=== PATIENT | female | born 1970 | race Caucasian/White ===

== ENCOUNTER → 2017-08-06 17:03 | Outpatient (CLI) | payer SELFPAY ==
[2017-08-20 12:22] LABS: Anti-Thyroglobulin AB < 1.0 IU/mL (0.0-0.9); Thyroglobulin, Serum Qt. 452.1 ng/mL (1.5-38.5); Thyroid Peroxidase AB 23 IU/mL (0-34)
== END ==
PROVIDERS: Family Provider Family Medicine; PCP Family Medicine; Visit Provider Otolaryngology
DX: E05.20 Thyrotoxicosis with toxic multinodular goiter without thyrotoxic crisis or storm (principal)
CPT/HCPCS: 36415; 84432; 86376; 86800

== ENCOUNTER → 2017-08-26 08:54 | Outpatient (CLI) | payer SELFPAY ==
--- NOTE | 2017-08-26 08:57 | US_ITS ---
STUDY: THYROID ULTRASOUND REASON FOR EXAM: Female, 47 years old. Multinodular goiter TECHNIQUE: Ultrasound evaluation of the thyroid was performed with real-time and static pantoja-scale imaging. COMPARISON: None. FINDINGS: RIGHT LOBE: The right lobe of the thyroid gland measures 7.5 x 3.1 x 3 cm. There is a heterogeneous echotexture. There are multiple solid nodules within the right lobe of the thyroid gland, the largest is within the midpole measuring 2.5 x 2.5 x 1.9 cm. LEFT LOBE: The left lobe of the thyroid gland measures 5.9 x 2.5 x 2.2 cm. There is a heterogeneous echotexture. There are multiple solid nodules within the left lobe of the thyroid gland, the largest measuring 1.6 x 1.6 x 1.4 cm. ISTHMUS: The isthmus measures 9 mm. The regional lymph nodes are normal. US/Thyroid IMPRESSION: Enlarged heterogeneous thyroid gland with multiple bilateral nodules most consistent with multinodular goiter. Electronically Signed: Demarco Coe DO at 8:55 EDT Tel , Service support ,
--- NOTE | 2017-08-26 09:33 | NM_ITS ---
CLINICAL: 47-year-old female with reported history of clinical thyrotoxicosis, thyroid nodularity. I-123 THYROID UPTAKE and SCAN COMPARISON: Thyroid ultrasound report 08/26/2017 FINDINGS: The patient was administered a 303 uCi I-123 capsule by mouth. The 4-hour I-123 radioactive iodine thyroidal uptake was calculated to be 40.3 % (normal 5 to 25 %). The 24-hour I-123 radioactive iodine thyroidal uptake was calculated to be 58.7 % (normal 5 to 40 %). The I-123 thyroid scan demonstrates heterogeneous distribution of the radiopharmaceutical throughout both lobes of a U-shaped thyroid gland. NM/Thyroid Uptake Single or Mult IMPRESSION: 1. ABNORMAL ELEVATED 4- and 24-hour I-123 radioactive iodine thyroidal uptakes. 2. The I-123 thyroid scan in conjunction with the calculated iodine uptake values is consistent with the presence of a toxic multinodular goiter. 3. The incidence of malignant transformation in hypofunctioning regions in multinodular thyroid glands is less than 5% in the absence of previous head and neck radiation. Electronically Signed: Gus Archuleta DO at 11:02 EDT Tel , Service support ,
== END ==
PROVIDERS: Family Provider Family Medicine; PCP Family Medicine; Visit Provider Otolaryngology
DX: E05.20 Thyrotoxicosis with toxic multinodular goiter without thyrotoxic crisis or storm (principal)
CPT/HCPCS: 76536; 78012; A9516

== ENCOUNTER → 2017-10-10 10:35 | Outpatient (CLI) | payer SELFPAY ==
[2017-10-10 13:36] LABS: Free T3 9.1 pg/mL (2.18-3.98); T4 Free Direct 3.56 ng/dL (0.76-1.46); Thyroid Stim Hormone (TSH) < 0.01 uIU/mL (0.358-3.74)
== END ==
PROVIDERS: Family Provider Family Medicine; PCP Family Medicine; Visit Provider Nurse Practitioner
DX: E07.9 Disorder of thyroid, unspecified (principal)
CPT/HCPCS: 36415; 84439; 84443; 84481

== ENCOUNTER → 2019-03-17 14:06 | Outpatient (CLI) | payer BC, SELFPAY ==
[2019-03-17 13:35] VITALS: BMI 42.4
--- NOTE | 2019-03-17 14:08 | EKG12_ITS ---
Test Reason : Blood Pressure : / mmHG Vent. Rate : 146 BPM Atrial Rate : 141 BPM P-R Int : 000 ms QRS Dur : 088 ms QT Int : 262 ms P-R-T Axes : 000 023 015 degrees QTc Int : 408 ms Atrial fibrillation with rapid ventricular response Abnormal ECG Confirmed by ALFREDO MCCABE, FRANTZ ([id number]), acquisitions editor JAHAIRA CANADA ([id number]) on 03/18/2019 1:16:17 PM Referred By: Donny Estraad Confirmed By:GILBERTO FUENTES MD
== END ==
PROVIDERS: Family Provider Family Medicine; PCP Family Medicine; Referring Provider Internal Medicine Endocrinology, Diabetes & Metabolism; Visit Provider Internal Medicine Endocrinology, Diabetes & Metabolism
DX: I49.9 Cardiac arrhythmia, unspecified (principal)
CPT/HCPCS: 93005

== ENCOUNTER 2019-03-17 14:33 | Inpatient (IN) | payer BC, SELFPAY ==
[2019-03-17] VITALS (19 sets, daily range): BP systolic 102–179; BP diastolic 72–132; PULSE 88–163; RESP 16–28; TEMP 36.4–36.9; O2SAT 97–99; BMI 42.4; BMI 42.9; BMI 42.8
--- NOTE | 2019-03-17 15:00 | RAD_ITS ---
STUDY: X-RAY CHEST REASON FOR EXAM: Female, 48 years old. PALPITATIONS TECHNIQUE: PA and lateral views of the chest. COMPARISON: None. FINDINGS: The lungs are clear and expanded. Scattered calcified granulomas. There is no demonstrated pleural abnormality. There is borderline cardiomegaly. Normal mediastinum and halie. Normal visualized pulmonary arteries. There is atherosclerotic tortuosity of the aortic arch and descending thoracic aorta. Normal visualized thoracic spine. Normal visualized ribs, clavicles, and shoulders. There is no demonstrated abnormality of the visualized soft tissue structures of the upper abdomen. RAD/Chest PA and Lateral IMPRESSION: Borderline cardiomegaly. Electronically Signed: [place], at 15:44 EST , Service support ,
[2019-03-17] MEDS: 0.9% Normal Saline 1,000 ML 999 ML IV (15:11)
[2019-03-17] MEDS: Metoprolol Tartrate 5 MG/5 ML Vial IV ×3 (15:12→15:24)
[2019-03-17 15:17] LABS: Absolute Lymphocyte Count 3.17 X10^3/uL (0.83-4.51); Basophil# 0.04 X10^3/uL; Basophil% 0.5 % (0-1); Eosinophil# 0.17 X10^3/uL; Eosinophils% 2.1 % (0-5); Hematocrit 46.2 % (37-47); Hemoglobin 15.1 g/dL (12.0-15.0); Lymphocyte # 3.17 X10^3/ul (4.0); Lymphocyte % 39.7 % (19-41); Mean Corp Hgb Conc 32.7 g/dL (32-36); Mean Corpuscular Hgb 28.1 pg (27.0-32.0); Mean Platelet Vol. 9.4 fl (6.2-12.0); Monocyte# 0.63 X10^3/uL; Monocyte% 7.9 % (0-10); NRBC Flagged by Analyzer 0 % (0-5); Neutrophil # 3.95 X10^3/uL (2.7-7.7); Neutrophil % 49.5 % (47-70); Platelet Count 335 K/mm3 (150-450); RBC Distribution Width CV 13.4 % (11.6-14.6); RBC Distribution Width SD 41.6 fl (35.1-43.9); Red Blood Count 5.37 M/mm3 (4.2-5.4)
--- NOTE | 2019-03-17 15:50 | ED.DCSUM_ITS ---
History of Present Illness Chief Complaint: Palpitations Informant: Patient Onset: - - Unknown Narrative: Patient is a 48-year-old female with history of hypothyroid, hypertension and palpitations presenting with abnormal EKG. Patient was due to have her thyroid checked and she had an EKG performed which showed atrial fibrillation with RVR. Her heart rate was between 140 and 160. She was then sent to the emergency room. Patient states she is on atenolol because she has a history of tachycardia. She denies any known history of atrial fibrillation. She states they been trying to get her thyroid under control because it is high. She denies any shortness of breath but states she does intermittently have dyspnea on exertion. She states it is been going on for little while. She is not sure for how long. She notes she is feeling palpitations right now. She states she been feeling palpitations on and off for the past 10 years however. She denies any chest pain or difficulty breathing. She denies any swelling of her legs. She denies any abdominal pain. She denies any urinary symptoms. She denies any fever or chills. Prior similar symptoms: Yes Past Medical History - Allergies and Home Meds Allergies/Adverse Reactions: Allergies No Known Allergies Allergy (Verified 03/17/19 14:36) Past Medical History: - - History of hyperthyroid, hypertension and fast heartbeat, polycystic ovarian syndrome Surgical History: noncontributory Smoking Status: Current every day smoker - Family History Maternal Family History: Family History (Last Reviewed 03/17/19 @ 17:21 by Bay Oliver DO) Other Adult idiopathic generalized osteoporosis Asthma Heart disease Kidney disease Seizures Family History: Reports: Heart Disease, Renal Disease Paternal Family History: Family History (Last Reviewed 03/17/19 @ 17:21 by Bay Oliver DO) Other Adult idiopathic generalized osteoporosis Asthma Heart disease Kidney disease Seizures Family History: Reports: COPD Review of Systems General: Reports: Malaise. Denies: Chills, Fever, Sweats Eyes: Denies: Visual changes - bilaterally, Diplopia ENT: Denies: Rhinorrhea, Sore throat Cardiovascular: Reports: Palpitations, Heart racing. Denies: Chest pain Respiratory: Reports: Dyspnea, Dyspnea on exertion. Denies: Cough Gastrointestinal: Denies: Abdominal pain, Nausea, Vomiting, Diarrhea, Melena, Hematochezia Genitourinary: Denies: Dysuria, Hematuria, Frequency Musculoskeletal: Denies: Back pain, Extremity Pain Skin: Denies: Rash, Wounds Neurological: Denies: Headache, Weakness, Numbness Physical Exam Vital Signs/Narrative: Vital Signs Temp Pulse Resp BP Pulse Ox 03/17/19 15:23 111 H 155/93 H 03/17/19 15:18 123 H 21 H 158/82 H 98 03/17/19 15:05 141 H 139/103 H 03/17/19 14:46 163 H 19 H 179/132 H 98 03/17/19 14:34 97.5 F L 98 18 178/108 H 98 Inital Vital Signs reviewed: Yes General: Well nourished, Well developed, Obese, No Acute Distress Head: Normocephalic, Atraumatic Eyes: Perrl, EOMI ENT: Moist mucous membranes, No rhinorrhea Neck: Supple, Nontender, No JVD Cardiovascular: No murmurs, Irregular, Tachycardia. Negative for: Murmur Respiratory: No distress, CTA bilaterally, Chest nontender Abdomen: Soft, Nontender, Nondistended, Normal bowel sounds Back: Nontender, Normal Inspection Extremities: Nontender, No edema. Negative for: Calf Tenderness Skin: Normal color, No rash Neurological: Alert, Oriented x3, Cranial nerves II-XII grossly intact, Normal Strength, Normal Sensation Psychological: Normal affect, Normal Mood Diagnostic/Tx/Re-eval Chest X-Ray - ED: 1 View, Read by ED Physician, Read by Radiologist, No Acute Disease Clinical Impression(s) from Imaging Studies Chest X-Ray 03/17/19 15:00 IMPRESSION: Borderline cardiomegaly. Electronically Signed: [place], at 15:44 EST , Service support , Laboratory Data 03/17/19 03/17/19 03/17/19 15:05 15:05 15:05 WBC 8.0 RBC 5.37 Hgb 15.1 H Hct 46.2 MCV 86.0 MCH 28.1 MCHC 32.7 RDW Std Deviation 41.6 RDW Coeff of Gaye 13.4 Plt Count 335 MPV 9.4 Immature Gran % (Auto) 0.300 Neut % (Auto) 49.5 Lymph % (Auto) 39.7 [place] % (Auto) 7.9 Eos % (Auto) 2.1 Baso % (Auto) 0.5 Absolute Neuts (auto) 4.0 Absolute Lymphs (auto) 3.17 Nucleated RBC % 0 Sodium 139 Potassium 3.7 Chloride 106 Carbon Dioxide 27.0 Anion Gap 6 BUN 14 Creatinine 0.63 Estim Creat Clear Calc 87.31 Est GFR (MDRD) Af Amer 129 Est GFR (MDRD) Non-Af 107 BUN/Creatinine Ratio 22.2 H Glucose 111 H Calcium 9.8 Troponin I 1.520 H* B-Natriuretic Peptide 232.1 H TSH < 0.01 L Free T3 pg/dL 7.1 H - Rhythm Strip Rhythm Strip: A-fib Rate: 146 Ectopy: None - EKG Initial EKG Interpretation: Atrial Fibrillation, - - Atrial fibrillation with RVR at a rate of 146 EKG was brought in by patient and ordered by Dr. Estrada Normal ST segments - Medical Decision Making Patient is evaluated for new onset of atrial fibrillation with RVR. She appears nontoxic in no acute distress. She is actually hypertensive. Patient was currently under evaluation for hyperthyroid by endocrinology. She was supposed to be getting blood work done to evaluate this when she was found to have a fast heart rate and then sent to the emergency room. Patient is given 3 doses of 5 mg IV metoprolol with improvement of her rate. Her troponin and proBNP are mildly elevated. Likely this is strain from her A. fib. Is not clear how long she has been in RVR. Patient makes comments that she is been feeling unwell for about a month. Because of the abnormal proBNP and troponin patient be admitted for further management of her atrial fibrillation. I suspect it is secondary to her hyperthyroid. I did discuss with admitting physician, the possibility of her being early thyroid storm. As patient is nontoxic appearing with normal mental status and normal reflexes do not think she needs to be emergently started on methimazole. 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 He will start this on the floor. In addition he will determine anticoagulation need. Patient is given a dose of aspirin in the emergency room. Patient stable for PCU at time of disposition. She is agreeable with plan. ED Disposition - Plan for ED Patient: Disposition: Acute Care Hospital [facility] Diagnosis: Atrial fibrillation with RVR, Hyperthyroidism, Elevated troponin
[2019-03-17 15:54] LABS: BNP,B-Type NATRIURETIC PEPTIDE 232.1 pg/mL (0-100)
[2019-03-17 15:56] LABS: Anion Gap 6 (5-15); BUN 14 mg/dL (7-18); BUN/Creat Ratio 22.2 RATIO (10-20); Calcium,Total 9.8 mg/dL (8.5-10.1); Chloride 106 mmol/L (98-107); Creatinine, Serum 0.63 mg/dL (0.55-1.02); EST Glomerular Filtration Rate 107 mL/min (>60); Est Glom Filt Rate - Afr Amer 129 mL/min (>60); Estimated Creatinine Clearance 87.31 ml/min; Free T3 7.1 pg/mL (2.18-3.98); Glucose 111 mg/dL (74-106); Potassium 3.7 mmol/L (3.5-5.1); Sodium Level 139 mmol/L (136-145); Thyroid Stim Hormone (TSH) < 0.01 uIU/mL (0.358-3.74)
[2019-03-17] MEDS: Aspirin 325 MG Tablet PO (16:40)
--- NOTE | 2019-03-17 16:54 | PCM.HP.STD ---
<Jak Knox - Last Filed: 03/17/19 16:54> Problem List (1) Atrial fibrillation with RVR Status: Acute (2) Hyperthyroidism Status: Acute (3) Morbid obesity Status: Chronic (4) GERD (gastroesophageal reflux disease) Status: Chronic (5) HTN (hypertension) Status: Chronic (6) Osteoarthritis Status: Chronic (7) Nicotine abuse Status: Chronic History of Present Illness Date of Admission: 03/17/19 Chief Complaint: irregular heart rhythm The patient is a 48 year old F with pmhx of hyperthyroidism, HTN, nicotine abuse, unspecified irregular heart rhythm, morbid obesity, osteoarthritis, GERD who presents to the ER from Dr. Estrada (endocrinology office) for arrhythmia. She went for a routine check up concerning her hyperthyroidism. She is not currently on medication for this. She was found to have Afib RVR with rate into the 160s. She was started on cardizem and has had some improvement. She reports no hx of afib but intermittent hx of nonspecific abnormal heart beat. She has elevated T3/T4 and suppressed TSH. Trop is elevated. She denies palpitations. She denies CP/pressure/tightness/heaviness. She has no SOB. She has noticed over the past month some heart racing with exertion. She also reports ongoing cough with intermittent sputum production and that her nieces and nephews are sick. [] Past Medical History Past Medical History (Chronic Problems): Chronic Problems (Last Reviewed 03/17/19 @ 14:07 by Donny Estrada MD) Morbid obesity (Chronic) GERD (gastroesophageal reflux disease) (Chronic) HTN (hypertension) (Chronic) Osteoarthritis (Chronic) Nicotine abuse (Chronic) Medical History: Medical History (Last Reviewed 03/17/19 @ 14:07 by Donny Estrada MD) Acute eczema L30.9 Allergic rhinitis, unspecified J30.9 Asthma J45.909 Chronic sinusitis J32.9 De Quervain's tenosynovitis M65.4 Encounter for therapeutic drug level monitoring Z51.81 Enlarged thyroid E04.9 Generalized osteoarthrosis, involving multiple sites M15.9 Hyperlipidemia E78.5 Internal hemorrhoids K64.8 Polycystic ovaries E28.2 Hypertension I10 Abdominal pain, right upper quadrant R10.11 Allergies No Known Allergies Allergy (Verified 03/17/19 14:36) Home Medications: Ambulatory Orders Medication Instructions Recorded DiphenhydrAMINE [Benadryl] 25 mg PO QHS PRN PRN 03/17/19 Hydrochlorothiazide [Hctz] 25 mg PO DAILY 03/17/19 Ibuprofen 800 mg PO DAILY PRN PRN 03/17/19 atenolol 50 mg tablet 50 mg PO DAILY 03/17/19 Surgical History: - - unspecified abdominal sugery for GERD Psychiatric History: No pertinent psych hx HEEL CEMENTER History: No pertinent HEEL CEMENTER history Lives: Spouse/ Significant Other Smoking Status: Current every day smoker Tobacco Use: Cigarettes Alcohol: None Drugs: None - *Family History Maternal Family History: Family History (Last Reviewed 03/17/19 @ 14:08 by Donny Estrada MD) Other Adult idiopathic generalized osteoporosis Asthma Heart disease Kidney disease Seizures History Items: Heart Disease, Renal Disease Paternal Family History: Family History (Last Reviewed 03/17/19 @ 14:08 by Donny Estrada MD) Other Adult idiopathic generalized osteoporosis Asthma Heart disease Kidney disease Seizures History Items: COPD Review of Systems Constitutional: Denies: Chills, Fever, Weight Change HEENT: Denies: Head Aches, Sinus Congestion, Sinus Drainage Cardiovascular: Denies: Chest Pain, Chest Pressure, Chest Tightness, Edema, Heaviness, Light Headedness, Palpitations, Syncope Respiratory: Denies: Cough, Shortness of breath at rest, Sputum production Gastrointestinal: Denies: Abdominal Pain, Nausea, Vomiting Genitourinary: Denies: Dysuria Musculoskeletal: Denies: Joint Pain, Joint Tenderness Skin: Denies: Rash, Wounds Neurological: Denies: Numbness, Tingling, Focal weakness Psychiatric: Denies: Anxiety, Depression, Homicidal Ideations, Suicidal Ideations Hematologic/ Lymphatic: Denies: Easy Bruising, Easy Bleeding VTE Information - Inpt Only VTE Present on Admission: No VTE Mechan Device Prophylaxis: None VTE Pharm Prophylaxis ordered?: Yes Patient Problems: Active and Suspected Problems (Last Reviewed 03/17/19 @ 14:07 by Donny Estrada MD) Hyperthyroidism (Acute) Atrial fibrillation with RVR (Acute) - Physical Exam Vitals/I&O's: Vital Signs Temp Pulse Resp BP Pulse Ox 97.5 F L 113 H 22 H 143/95 H 97 03/17/19 14:34 03/17/19 16:00 03/17/19 16:00 03/17/19 16:00 03/17/19 16:00 Oxygen Delivery Method Room Air Weight: 234 lb 12.8 oz Body Mass Index (BMI) 42.9 Intake and Output for Last 24 Hours 03/15/19 03/16/19 03/17/19 23:59 23:59 23:59 Intake Total 1000 / 1000 Balance 1000 / 1000 General: Alert, Oriented x3, Cooperative HEENT: Atraumatic, PERRLA, EOMI, Normocephalic Neck: Supple, No JVD, Negative Carotid Bruits Lungs: Clear to auscultation, Normal air movement Cardiovascular: Regular rate, No murmurs Abdomen: Bowel Sounds Present, Soft, Non Tender, Obese Extremities: No edema, Capillary Refill Less than 3 Seconds Skin: No rashes, No breakdown Musculoskeletal: No Tenderness to Palpation of Joints or Extremities Neurological: Cranial nerves II-XII grossly intact Psych/Mental Status: Normal Affect, Appropriate, Alert and oriented to time, place, person, mood and affect Laboratory Results 03/17/19 15:05: WBC 8.0, RBC 5.37, Hgb 15.1 H, Hct 46.2, MCV 86.0, MCH 28.1, MCHC 32.7, RDW Std Deviation 41.6, RDW Coeff of Gaye 13.4, Plt Count 335, MPV 9.4, Immature Gran % (Auto) 0.300, Neut % (Auto) 49.5, Lymph % (Auto) 39.7, [place] % (Auto) 7.9, Eos % (Auto) 2.1, Baso % (Auto) 0.5, Absolute Neuts (auto) 4.0, Absolute Lymphs (auto) 3.17, Nucleated RBC % 0 03/17/19 15:05: Sodium 139, Potassium 3.7, Chloride 106, Carbon Dioxide 27.0, Anion Gap 6, BUN 14, Creatinine 0.63, Estim Creat Clear Calc 87.31, Est GFR (MDRD) Af Amer 129, Est GFR (MDRD) Non-Af 107, BUN/Creatinine Ratio 22.2 H, Glucose 111 H, Calcium 9.8, Troponin I 1.520 H*, TSH < 0.01 L, Free T3 pg/dL 7.1 H 03/17/19 15:05: B-Natriuretic Peptide 232.1 H Current Medications Methimazole (Tapazole) 10 mg PO DAILY ELICEO Assessment/Plan All Active Problems (Last Reviewed 03/17/19 @ 14:07 by Donny Estrada MD) Hyperthyroidism (Acute) Atrial fibrillation with RVR (Acute) 1. Afib RVR 2/2 hyperyhtoidism - start methimazole. Continue cardizem. BNP elevated but no SOB, negative CXR, no pitting edema. Start lovenox. No hx of afib however states she has had a non specific arrhythmia prior. No prior senior underwriting assistant. 2. Elevated troponin - cycle enzymes, serial EKGs, aspirin given in ER - continue, obtain echo, consult cardiology. No hx CAD. + family hx hrt dz. 4. HTN - continue HCTZ 5. 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 Nicotine abuse - 1/2 ppd smoker since teenager. Patch if desired. 7. GERD - not on ppi. prior surgery for GERD. 8. Osteoarthritis - chronic back pain. DVT ppx: Lovenox This patient was seen by Jak Knox PA-C under the supervision of Dr. Oliver. <Bay Oliver - Last Filed: 03/17/19 17:25> History of Present Illness The patient is a 48 year old F presents from Endocrinology office with tachycardia. Sent to ED and received 1 time dose of IV metoprolol for HR in 140s. Patient has occasional palpitations. No chest pain.[] Past Medical History Medical History: Medical History (Last Reviewed 03/17/19 @ 17:20 by Bay Oliver DO) Acute eczema L30.9 Allergic rhinitis, unspecified J30.9 Asthma J45.909 Chronic sinusitis J32.9 De Quervain's tenosynovitis M65.4 Encounter for therapeutic drug level monitoring Z51.81 Enlarged thyroid E04.9 Generalized osteoarthrosis, involving multiple sites M15.9 Hyperlipidemia E78.5 Internal hemorrhoids K64.8 Polycystic ovaries E28.2 Hypertension I10 Abdominal pain, right upper quadrant R10.11 Allergies No Known Allergies Allergy (Verified 03/17/19 14:36) Surgical History: - Psychiatric History: No pertinent psych hx HEEL CEMENTER History: No pertinent HEEL CEMENTER history Lives: Spouse/ Significant Other Smoking Status: Current every day smoker Tobacco Use: Cigarettes Alcohol: None Drugs: None - *Family History Maternal Family History: Family History (Last Reviewed 03/17/19 @ 17:21 by Bay Oliver DO) Other Adult idiopathic generalized osteoporosis Asthma Heart disease Kidney disease Seizures Paternal Family History: Family History (Last Reviewed 03/17/19 @ 17:21 by Bay Oliver DO) Other Adult idiopathic generalized osteoporosis Asthma Heart disease Kidney disease Seizures Review of Systems Constitutional: Denies: Chills, Fever, Weight Change HEENT: Denies: Head Aches, Sinus Congestion, Sinus Drainage Cardiovascular: Reports: Palpitations. Denies: Chest Pain, Chest Pressure, Chest Tightness, Edema, Heaviness, Light Headedness, Syncope Respiratory: Denies: Cough, Shortness of breath at rest, Sputum production Gastrointestinal: Denies: Abdominal Pain, Nausea, Vomiting Genitourinary: Denies: Dysuria Musculoskeletal: Denies: Joint Pain, Joint Tenderness Skin: Denies: Rash, Wounds Neurological: Denies: Focal weakness, Numbness, Tingling Psychiatric: Denies: Anxiety, Depression, Homicidal Ideations, Suicidal Ideations Hematologic/ Lymphatic: Denies: Easy Bruising, Easy Bleeding VTE Information - Inpt Only VTE Present on Admission: No VTE Mechan Device Prophylaxis: None VTE Pharm Prophylaxis ordered?: No Reason prophylaxis not ordered:: Treatment Not Indicated - Physical Exam Vitals/I&O's: Vital Signs Temp Pulse Resp BP Pulse Ox 36.9 C 93 20 H 139/94 H 98 03/17/19 17:15 03/17/19 17:15 03/17/19 17:15 03/17/19 17:15 03/17/19 17:15 Oxygen Delivery Method Room Air Weight: 106.2 kg Body Mass Index (BMI) 42.8 Intake and Output for Last 24 Hours 03/15/19 03/16/19 03/17/19 23:59 23:59 23:59 Intake Total 1000 / 1000 Balance 1000 / 1000 General: Alert, Cooperative HEENT: Atraumatic, Normocephalic Neck: Negative Carotid Bruits, No Nodes, Trachea Midline Lungs: Clear to auscultation, Normal air movement, No rhonchi, No wheeze Cardiovascular: Irregular Rate, Tachycardic Abdomen: Bowel Sounds Present, Soft, Non Tender, Obese Extremities: No edema, No Calf Tenderness Skin: No rashes, No breakdown Musculoskeletal: No Tenderness to Palpation of Joints or Extremities, No Muscle Wasting Neurological: Cranial nerves II-XII grossly intact Psych/Mental Status: Normal Affect, Appropriate Laboratory Results 03/17/19 15:05: WBC 8.0, RBC 5.37, Hgb 15.1 H, Hct 46.2, MCV 86.0, MCH 28.1, MCHC 32.7, RDW Std Deviation 41.6, RDW Coeff of Gaye 13.4, Plt Count 335, MPV 9.4, Immature Gran % (Auto) 0.300, Neut % (Auto) 49.5, Lymph % (Auto) 39.7, [place] % (Auto) 7.9, Eos % (Auto) 2.1, Baso % (Auto) 0.5, Absolute Neuts (auto) 4.0, Absolute Lymphs (auto) 3.17, Nucleated RBC % 0 03/17/19 15:05: Sodium 139, Potassium 3.7, Chloride 106, Carbon Dioxide 27.0, Anion Gap 6, BUN 14, Creatinine 0.63, Estim Creat Clear Calc 87.31, Est GFR (MDRD) Af Amer 129, Est GFR (MDRD) Non-Af 107, BUN/Creatinine Ratio 22.2 H, Glucose 111 H, Calcium 9.8, Troponin I 1.520 H*, TSH < 0.01 L, Free T3 pg/dL 7.1 H 03/17/19 15:05: B-Natriuretic Peptide 232.1 H Current Medications Acetaminophen (Tylenol) 650 mg PO Q6H PRN PRN PRN Reason: Pain Score 1-3/Temp > 100.7 F Diphenhydramine HCl (Benadryl) 25 mg PO QHS PRN PRN PRN Reason: ALLERGIES Enoxaparin Sodium (Lovenox) 110 mg SC Q12 ELICEO Glucagon () 1 mg IM .X1 PRN PRN Reason: Hypoglycemia Hydrochlorothiazide (Hctz) 25 mg PO DAILY [facility] Dextrose (Dextrose 10%-Water) 250 mls @ 999 mls/hr IV .Q16M PRN; Protocol PRN Reason: HYPOGLYCEMIA Methimazole (Tapazole) 10 mg PO DAILY [facility] Ondansetron HCl (Zofran) 4 mg IV Q8H PRN PRN PRN Reason: NAUSEA/VOMITING Sodium Chloride () 10 - 40 ml IV UD PRN PRN Reason: SALINE FLUSH Assessment/Plan Patient seen and examined independently. Data reviewed. I agree with the above note by the physician medication assistant. 1. Afib w RVR Suspect related with the hyperthyroidism Patient heart rate did improve with IV metoprolol and will put the patient on oral metoprolol at 50 twice daily [id number] score is 2, will initiate enoxaparin Check echocardiogram and start oral anticoagulation based on echocardiogram findings if patient to be on novel anticoagulants or not. Cardiology on consultation 2. Non-STEMI Probably due to demand from the atrial fibrillation with RVR Cardiology on consultation Cycle troponins Discussed with Dr. Patterson who does not advise a stress test nor heart cath at this point in time but will evaluate and determine if those would be necessary 3. Hyperthyroidism Elevated free T3 and low TSH Saw Dr. Estrada today who advised methimazole 10 mg daily. We will start that today. 4. VTE prophylaxis: Not indicated as patient is already anticoagulated. Code Visit Inpatient E&M: 29581 Init Hosp L3
--- NOTE | 2019-03-17 17:02 | ECHOCS_ITS ---
Reason For Study: AFIB Procedure This was a 2D Doppler, Color Flow transthoracic echocardiogram. Exam performed portable in patient room. Left Ventricle Normal LV size. The estimated ejection fraction is 60 %. No evidence for diastolic dysfunction. No regional wall motion abnormalities noted. Right Ventricle Normal RV size. Normal systolic function. Atria Normal left atrium. Normal right atrium. No doppler evidence for ASD. Mitral Valve There is no mitral valve stenosis. No mitral valve insufficiency. Tricuspid Valve There is no tricuspid stenosis. Trivial tricuspid valve insufficiency. Pulmonary artery systolic pressure is 35 mmHg. Aortic Valve Trisinus/trileaflet aortic valve. There is no aortic stenosis. No aortic valve insufficiency. Pulmonic Valve There is no pulmonic valvular stenosis. No pulmonic valve insufficiency. Great Vessels Normal aortic root. Pericardium/Pleural No pericardial effusion. Medication Diluted definity 2ml given slow IV push to enhance endocardial definition. MMode/2D Measurements & Calculations LVIDd: 4.6 cm IVSd: 0.88 cm Ao root diam: 3.2 cm LVIDs: 3.2 cm LVPWd: 0.86 cm RVDd: 3.7 cm FS: 30.8 % LAV(MOD-sp4): 69.0 ml LVAd ap4: 30.2 cm2 SV(MOD-sp4): 52.4 ml EDV(MOD-sp4): 96.0 ml EDV(sp4-el): 97.2 ml LVAs ap4: 18.1 cm2 ESV(MOD-sp4): 43.6 ml ESV(sp4-el): 43.8 ml EF(MOD-sp4): 54.6 % EF(sp4-el): 54.9 % SV(sp4-el): 53.4 ml LA A4 area: 22.4 cm2 LA dimension(2D): 3.9 cm RA A4 area: 19.8 cm2 Doppler Measurements & Calculations MV E max geraldine: 103.3 cm/sec Ao V2 max: 161.5 cm/sec LV V1 max: 140.4 cm/sec Ao max P.5 mmHg LV V1 max P.9 mmHg PA V2 max: 97.1 cm/sec TR max geraldine: 278.9 cm/sec TR max P.1 mmHg Interpretation Summary The study was technically difficult. Diluted definity 2ml given slow IV push to enhance endocardial definition. The estimated ejection fraction is 60 %. No evidence for diastolic dysfunction. Trivial tricuspid valve insufficiency. The study was technically difficult. Ordering Physician: Bay Oliver Referring Physician: FERNANDO SCHMIDT Performed By: Anna Mcgee RDCS
[2019-03-17] MEDS: Metoprolol Tartrate 50 MG Tablet PO (18:06)
[2019-03-17] MEDS: METHIMAZOLE 5 MG TABLET 10 MG PO (18:09)
--- NOTE | 2019-03-17 20:44 | PCM.PN.BLA ---
Progress Note Heart rate remains persistently elevated; patient in A. fib with RVR Has received 3 doses of IV metoprolol since being admitted this afternoon. Received 50 mg of p.o. metoprolol x1 Will hold oral metoprolol and switch to Cardizem drip STROKE Vital Signs/Narrative: Vital Signs Temp Pulse Resp BP Pulse Ox 03/17/19 18:31 141 H 03/17/19 18:06 93 139/94 H 03/17/19 17:15 98.4 F 93 20 H 139/94 H 98
[2019-03-17] MEDS: 0.9% Saline Lock 10 ML Syringe IV (20:53)
[2019-03-17] MEDS: Acetaminophen 325 MG Tablet 650 MG PO (20:53)
[2019-03-17] MEDS: Enoxaparin 120 MG/0.8 ML Syringe 110 MG SC (21:01)
[2019-03-18] VITALS (18 sets, daily range): BP systolic 104–134; BP diastolic 52–103; PULSE 69–104; RESP 18–28; TEMP 36.6–36.7; O2SAT 95–99
[2019-03-18] MEDS: BENZOCAINE/MENTHOL 1 LOZENGE MUCOUS MEM (04:45)
[2019-03-18 05:39] LABS: Absolute Neutrophil Count 2.4 X10^3/uL (2.0-7.7); Basophil# 0.07 X10^3/uL; Basophil% 0.8 % (0-1); Eosinophils% 2.4 % (0-5); Hematocrit 43.8 % (37-47); Hemoglobin 13.8 g/dL (12.0-15.0); Lymphocyte % 60.4 % (19-41); Mean Corp Hgb Conc 31.5 g/dL (32-36); Mean Corpuscular Hgb 28.2 pg (27.0-32.0); Mean Corpuscular Volume 89.4 fL (81-99); Mean Platelet Vol. 9.6 fl (6.2-12.0); Monocyte# 0.65 X10^3/uL; Monocyte% 7.9 % (0-10); NRBC Flagged by Analyzer 0 % (0-5); Neutrophil # 2.35 X10^3/uL (2.7-7.7); Neutrophil % 28.4 % (47-70); Platelet Count 283 K/mm3 (150-450); RBC Distribution Width CV 13.4 % (11.6-14.6); RBC Distribution Width SD 43.8 fl (35.1-43.9); White Blood Count 8.3 K/mm3 (4.4-11.0)
[2019-03-18] MEDS: Acetaminophen 325 MG Tablet 650 MG PO (06:25)
[2019-03-18 06:41] LABS: ALB/GLOB Ratio 0.8 RATIO (0.9-2.4); AST(SGOT) 22 U/L (15-37); Alanine Aminotransfer ALT/SGPT 23 U/L (13-56); Albumin, Serum 2.8 g/dL (3.2-5.0); Alkaline Phosphatase 102 U/L (45-117); Anion Gap 6 (5-15); BUN 11 mg/dL (7-18); BUN/Creat Ratio 21.5 RATIO (10-20); Calcium,Total 9.1 mg/dL (8.5-10.1); Chloride 108 mmol/L (98-107); Creatinine, Serum 0.51 mg/dL (0.55-1.02); EST Glomerular Filtration Rate 137 mL/min (>60); Est Glom Filt Rate - Afr Amer 165 mL/min (>60); Estimated Creatinine Clearance 107.85 ml/min; Globulin 3.7 g/dL (2.2-4.2); Glucose 90 mg/dL (74-106); Potassium 3.4 mmol/L (3.5-5.1); Protein, Total 6.5 g/dL (6.4-8.2); Sodium Level 140 mmol/L (136-145)
[2019-03-18] MEDS: Aspirin 81 MG TAB.CHEW PO (08:25)
[2019-03-18] MEDS: Metoprolol Tartrate 50 MG Tablet PO (08:25)
[2019-03-18] MEDS: hydroCHLOROthiazide 25 MG Tablet PO (10:16)
[2019-03-18] MEDS: METHIMAZOLE 5 MG TABLET 20 MG PO (10:16)
[2019-03-18] MEDS: Enoxaparin 120 MG/0.8 ML Syringe 110 MG SC (10:18)
--- NOTE | 2019-03-18 11:43 | CASEMGMT ---
RN CM Assessment Introduced role of RN CM to patient.? Patient is alert, oriented and able?to participate in RN CM Assessment. ?Care providers, pharmacy, and demographics verified. Presentation: At routine check with new Motivational Speaker- 1st appointment for concern of hyperthyroidism, Found in Afib RVR rate 160's, started on Cardizem. Admit Dx: Afib Re-Admit: No Barriers/Issues: None. Patient states has no issues obtaining any medication that is prescribed to her, states prefers to have medications prescribed that would be cheaper for her but does get whatever is prescribed. This designer/writer did provide patient with a few different Medication Coupon Cards should she ever need to try and use in the future if she is ever on medications that are too costly. Patient states that she wants to switch her PCP provider and this designer/writer provided patient with a PCP list. PCP: Venkatesh Artis Specialists: Kate Estrada Preferred [facility]acy: [facility] Insurance: [place] Rx Benefit: Yes? ?LNOK: Life Partner Adri Bobby LW/HPOA: None, declines offered information or completion of services on this admission. Made aware can complete as an Outpatient with dept. Living Arrangements:? Lives with her Life Partner Adri in a 2SH, Bedroom on . 4-5 steps to enter home. ADL?s: Independent with ambulation and ADLs Transportation: Patient drives and denies any issues. DME: None HHC: None SNF: None Goal: Home and does not think will have any needs. Denies any issues, concerns, needs or questions with DC planning at this time. Aware CM remains available for any emerging needs. DC PLAN: Home with no anticipated needs identified at this time. MIGUELITO Gallagher
--- NOTE | 2019-03-18 14:37 | PCM.CONS.C ---
Problem List (1) Atrial fibrillation with RVR Status: Acute Reason for Consult Date of Consultation: 03/18/19 History of Present Illness: The patient is a 48 year old F [sent to the ER by her mold shifter Dr. Estrada for elevated heart rate. Patient has history of hyperthyroidism and during a routine visit to Dr. Estrada she was found to have A. fib with RVR. Patient did not feel palpitations at this time. She has had episodes of palpitations when she exerts herself. So it is unclear how long she has been in A. fib with RVR. She denies any chest pain, shortness of breath, dizziness, syncope etc. Review of systems: All systems reviewed. All else negative except that in the HPI.] Past Medical History Allergies/Adverse Reactions: Allergies No Known Allergies Allergy (Verified 03/17/19 14:36) Home Medications: Ambulatory Orders Medication Instructions Recorded DiphenhydrAMINE [Benadryl] 25 mg PO QHS PRN PRN 03/17/19 Hydrochlorothiazide [Hctz] 25 mg PO DAILY 03/17/19 Ibuprofen 800 mg PO DAILY PRN PRN 03/17/19 atenolol 50 mg tablet 50 mg PO DAILY 03/17/19 Past Medical History (Chronic Problems): Chronic Problems (Last Reviewed 03/17/19 @ 17:20 by Bay Oliver DO) Morbid obesity (Chronic) GERD (gastroesophageal reflux disease) (Chronic) HTN (hypertension) (Chronic) Osteoarthritis (Chronic) Nicotine abuse (Chronic) Surgical History: noncontributory Psychiatric History: No pertinent psych hx 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 - *Family History Maternal Family History: Family History (Last Reviewed 03/17/19 @ 17:21 by Bay Oliver DO) Other Adult idiopathic generalized osteoporosis Asthma Heart disease Kidney disease Seizures History Items: Heart Disease, Renal Disease Paternal Family History: Family History (Last Reviewed 03/17/19 @ 17:21 by Bay Oliver DO) Other Adult idiopathic generalized osteoporosis Asthma Heart disease Kidney disease Seizures History Items: COPD Lives: Spouse/ Significant Other Smoking Status: Current every day smoker Tobacco Use: Cigarettes Alcohol: None Drugs: None Objective: Vital Signs Temp Pulse Resp BP Pulse Ox 97.8 F 97 18 120/52 L 95 03/18/19 10:00 03/18/19 11:00 03/18/19 10:00 03/18/19 10:00 03/18/19 10:00 Oxygen Delivery Method Room Air Weight: 234 lb 2.095 oz Body Mass Index (BMI) 42.8 Intake and Output for Last 24 Hours 03/16/19 03/17/19 03/18/19 23:59 23:59 23:59 Intake Total 1151.17 / 1151.17 Balance 115.17 / 115.17 General: Awake, Alert, Oriented x 3 HEENT: Atraumatic Oral: Moist Mucosa Neck: Supple Lungs: Clear to auscultation Cardiovascular: Normal S1, Normal S2 Abdomen: Soft Extremities: No edema Skin: No Rashes Psych/Mental Status: Appropriate 03/17/19 15:05: WBC 8.0, RBC 5.37, Hgb 15.1 H, Hct 46.2, MCV 86.0, MCH 28.1, MCHC 32.7, Plt Count 335, MPV 9.4, Immature Gran % (Auto) 0.300, Neut % (Auto) 49.5, Lymph % (Auto) 39.7, [place] % (Auto) 7.9, Eos % (Auto) 2.1, Baso % (Auto) 0.5, Absolute Neuts (auto) 4.0, Nucleated RBC % 0 03/17/19 15:05: Sodium 139, Potassium 3.7, Chloride 106, Carbon Dioxide 27.0, Anion Gap 6, BUN 14, Creatinine 0.63, Est GFR (MDRD) Af Amer 129, Est GFR (MDRD) Non-Af 107, BUN/Creatinine Ratio 22.2 H, Glucose 111 H, Calcium 9.8, Troponin I 1.520 H* 03/17/19 15:05: B-Natriuretic Peptide 232.1 H 03/17/19 18:29: Troponin I 1.180 H* 03/17/19 21:36: Troponin I 1.150 H* 03/18/19 05:16: WBC 8.3, RBC 4.90, Hgb 13.8, Hct 43.8, MCV 89.4, MCH 28.2, MCHC 31.5 L, Plt Count 283, MPV 9.6, Immature Gran % (Auto) 0.100, Neut % (Auto) 28.4 L, Lymph % (Auto) 60.[address] H, [place] % (Auto) 7.9, Eos % (Auto) 2.4, Baso % (Auto) 0.8, Absolute Neuts (auto) 2.4, Nucleated RBC % 0 03/18/19 05:16: Sodium Cancelled, Potassium Cancelled, Chloride Cancelled, Carbon Dioxide Cancelled, Anion Gap Cancelled, BUN Cancelled, Creatinine Cancelled, Est GFR (MDRD) Af Amer Cancelled, Est GFR (MDRD) Non-Af Cancelled, BUN/Creatinine Ratio Cancelled, Glucose Cancelled, Calcium Cancelled, Total Bilirubin Cancelled 03/18/19 05:56: Sodium 140, Potassium 3.4 L, Chloride 108 H, Carbon Dioxide 26.0, Anion Gap 6, BUN 11, Creatinine 0.51 L, Est GFR (MDRD) Af Amer 165, Est GFR (MDRD) Non-Af 137, BUN/Creatinine Ratio 21.5 H, Glucose 90, Calcium 9.1, Total Bilirubin 0.50 Rhythm: EKG: ECHO: Stress Test: Cardiac Cath: PCI: CT Surgery: Holter monitor: EPS: PPM: CXR: Chest CT Scan: Assessment/Plan 1. Atrial fibrillation: Agree with switching the patient to metoprolol. 2D echo reveals preserved EF. Patient has a chads vascular 2 score of 2. It will be reasonable to keep the patient on Eliquis. 2. Elevated troponin: Likely related to A. fib with RVR. As an outpatient stress test could be considered. Patient has knee problems and would need a chemical stress test.
--- NOTE | 2019-03-18 14:45 | DCINST_ITS ---
- Discharge Diagnoses Current Active Problems: Current Active and Chronic Problems (Last Reviewed 03/17/19 @ 17:20 by Bay Oliver DO) Hyperthyroidism (Acute) Atrial fibrillation with RVR (Acute) Morbid obesity (Chronic) GERD (gastroesophageal reflux disease) (Chronic) HTN (hypertension) (Chronic) Osteoarthritis (Chronic) Nicotine abuse (Chronic) Elevated troponin (Acute) You will use the following diet at home:: Cardiac Your food should be the consistency of: Regular Your liquids should be the consistency of: Regular/Thin Discharge Activity: Return to Normal Activity Allergies/Adverse Reactions: Allergies No Known Allergies Allergy (Verified 03/17/19 14:36) Medications to take at Discharge DiphenhydrAMINE [Benadryl] 25 mg PO QHS PRN PRN 03/17/19 Hydrochlorothiazide [Hctz] 25 mg PO DAILY 03/17/19 Apixaban [Eliquis] 5 mg PO BID #60 tab 03/18/19 Methimazole [Tapazole] 20 mg PO BID #120 tab 03/18/19 Metoprolol Tartrate [Lopressor (beta estuardo)] 50 mg PO BID #60 tab 03/18/19 The following prescriptions were given: Apixaban [Eliquis] 5 mg PO BID #60 tab Transmission Status: [facility] Metoprolol Tartrate [Lopressor (beta estuardo)] 50 mg PO BID #60 tab Transmission Status: [facility] Methimazole [Tapazole] 20 mg PO BID #120 tab Transmission Status: Sent to [facility] Primary Care Physician: Venkatesh Artis [Primary Care Provider] - Please follow up with your Primary Care Physician in: 1-2 weeks Test Results: Test results from this visit will be discussed in further detail at your follow- up appointment, if applicable. Please Follow Up With: Maria Antonia Patterson MD When: as directed Please Follow Up With: Donny Estrada MD When: 1-2 weeks Proposed Discharge Date: 03/18/19
--- NOTE | 2019-03-18 15:23 | CASEMGMT ---
Pt to be sent home on Eliquis at discharge and med previously [facility] to [facility]. Call to [facility] and per tech, they do not have any insurance information on file for pt at this time. Pt does not have card on file at [facility] at this time and pt states she does not have a card with her. She states that her sig other is on the way and may have the card with her? This NIA MCDONOUGH did provided pt with $10co-pay card at this time with instructions, voices understanding. Pt is aware that if co-pay is too expensive then to discuss with physician at f/u appt, voices understanding. Pt is also made aware to use [facility] for other meds, voices understanding. Pt voices no further questions/concerns/needs at this time. SStrah KRAMER CM
--- NOTE | 2019-03-18 15:23 | PCM.DC.SUM ---
<Jak Knox - Last Filed: 03/18/19 15:23> Discharge Date and Diagnosis Date of Admission: 03/17/19 Date of Discharge: 03/18/19 - Primary Discharge Diagnosis Active and Suspected Problems (Last Reviewed 03/17/19 @ 17:20 by Bay Oliver DO) Hyperthyroidism (Acute) Atrial fibrillation with RVR (Acute) due to hyperthyroidism Elevated troponin (Acute) 2/2 demand ischemia from above Morbid obesity Nicotine abuse HTN Osteoarthritis GERD - Secondary Discharge Diagnosis Chronic Problems (Last Reviewed 03/17/19 @ 17:20 by Bay Oliver DO) Morbid obesity (Chronic) GERD (gastroesophageal reflux disease) (Chronic) HTN (hypertension) (Chronic) Osteoarthritis (Chronic) Nicotine abuse (Chronic) Hospital Course and Treatment Imaging Results: RAD/Chest PA and Lateral IMPRESSION: Borderline cardiomegaly. 2D echo: Interpretation Summary The study was technically difficult. Diluted definity 2ml given slow IV push to enhance endocardial definition. The estimated ejection fraction is 60 %. No evidence for diastolic dysfunction. Trivial tricuspid valve insufficiency. The study was technically difficult. consultation: Cardiology Dora Patterson Procedures: 2-D Echocardiogram Summary of Care Provided: Hospital course: The patient is a 48 year old F with a history of hyperthyroidism not currently on medications for this, history of morbid obesity, GERD, hypertension, nicotine abuse, who presented to the emergency room with complaints of abnormal heart rhythm. She went to see her residential therapist who found a an irregular heartbeat and sent her to the emergency room. In the ER she had an EKG consistent with atrial fibrillation with rapid ventricular response. Follow-up thyroid studies showed elevated T3 and T4 with suppressed TSH. She was felt to have A. fib RVR secondary to hyperthyroidism. She was admitted to the PCU and placed on telemetry. She was started on methimazole. She was initially given Lopressor however overnight she was started on a Cardizem drip. Rate was controlled with Cardizem drip and in the morning she was transitioned to oral metoprolol. She was also placed on Eliquis. Echocardiogram was obtained and was unremarkable. Cardiology was consulted as she also had elevated troponins. Initial troponin was 1.520 and steadily declined to 1.150. She had no chest pain. She remained otherwise stable with a controlled heart rate although still in atrial fibrillation. She was discharged home in stable condition to continue methimazole, metoprolol, Eliquis. She will need to follow-up with her residential therapist in the next 1-2 weejs, follow-up with cardiology as directed, and follow-up with her PCP in 1 to 2 weeks. This patient was seen by Jak Knox PA-C under the supervision of Doctor Teddy. [] - Physical Exam Vitals/I&O's: Vital Signs Temp Pulse Resp BP Pulse Ox 97.8 F 84 18 120/52 L 95 03/18/19 14:46 03/18/19 14:46 03/18/19 14:46 03/18/19 14:46 03/18/19 14:46 Oxygen Delivery Method Room Air Weight: 234 lb 2.095 oz Body Mass Index (BMI) 42.8 Intake and Output for Last 24 Hours 03/16/19 03/17/19 03/18/19 23:59 23:59 23:59 Intake Total 1151.17 / 1151.17 Balance 1151.17 / 1151.17 General: Alert, Oriented x3, Cooperative HEENT: Atraumatic, PERRLA, EOMI, Normocephalic Neck: Supple, No JVD, Negative Carotid Bruits Lungs: Clear to auscultation, Normal air movement Cardiovascular: No murmurs, Irregular Rate Abdomen: Bowel Sounds Present, Soft, Non Tender Extremities: No edema, Capillary Refill Less than 3 Seconds Skin: No rashes, No breakdown Musculoskeletal: No Tenderness to Palpation of Joints or Extremities Neurological: Cranial nerves II-XII grossly intact Psych/Mental Status: Normal Affect, Appropriate, Alert and oriented to time, place, person, mood and affect Laboratory Results 03/17/19 15:05: Sodium 139, Potassium 3.7, Chloride 106, Carbon Dioxide 27.0, Anion Gap 6, BUN 14, Creatinine 0.63, Estim Creat Clear Calc 87.31, Est GFR (MDRD) Af Amer 129, Est GFR (MDRD) Non-Af 107, BUN/Creatinine Ratio 22.2 H, Glucose 111 H, Calcium 9.8, Troponin I 1.520 H*, TSH < 0.01 L, Free T3 pg/dL 7.1 H 03/17/19 15:05: B-Natriuretic Peptide 232.1 H 03/17/19 18:29: Troponin I 1.180 H* 03/17/19 21:36: Troponin I 1.150 H* 03/18/19 05:16: WBC 8.3, RBC 4.90, Hgb 13.8, Hct 43.8, MCV 89.4, MCH 28.2, MCHC 31.5 L, RDW Std Deviation 43.8, RDW Coeff of Gaye 13.4, Plt Count 283, MPV 9.6, Immature Gran % (Auto) 0.100, Neut % (Auto) 28.4 L, Lymph % (Auto) 60.4 H, Ector % (Auto) 7.9, Eos % (Auto) 2.4, Baso % (Auto) 0.8, Absolute Neuts (auto) 2.4, Absolute Lymphs (auto) 5.00 H, Nucleated RBC % 0 03/18/19 05:16: Sodium Cancelled, Potassium Cancelled, Chloride Cancelled, Carbon Dioxide Cancelled, Anion Gap Cancelled, BUN Cancelled, Creatinine Cancelled, Estim Creat Clear Calc Cancelled, Est GFR (MDRD) Af Amer Cancelled, Est GFR (MDRD) Non-Af Cancelled, BUN/Creatinine Ratio Cancelled, Glucose Cancelled, Calcium Cancelled, Total Bilirubin Cancelled, AST Cancelled, ALT Cancelled, Alkaline Phosphatase Cancelled, Total Protein Cancelled, Albumin Cancelled, Globulin Cancelled, Albumin/Globulin Ratio Cancelled 03/18/19 05:56: Sodium 140, Potassium 3.4 L, Chloride 108 H, Carbon Dioxide 26.0, Anion Gap 6, BUN 11, Creatinine 0.51 L, Estim Creat Clear Calc 107.85, Est GFR (MDRD) Af Amer 165, Est GFR (MDRD) Non-Af 137, BUN/Creatinine Ratio 21.5 H, Glucose 90, Calcium 9.1, Total Bilirubin 0.50, AST 22, ALT 23, Alkaline Phosphatase 102, Total Protein 6.5, Albumin 2.8 L, Globulin 3.7, Albumin/Globulin Ratio 0.8 L Current Medications Acetaminophen (Tylenol) 650 mg PO Q6H PRN PRN PRN Reason: Pain Score 1-3/Temp > 100.7 F Last Admin: 03/18/19 06:25 Dose: 650 mg Documented by: Aspirin (Aspirin, Baby) 81 mg PO DAILY@0800 [facility] Last Admin: 03/18/19 08:25 Dose: 81 mg Documented by: Diphenhydramine HCl (Benadryl) 25 mg PO QHS PRN PRN PRN Reason: ALLERGIES Enoxaparin Sodium (Lovenox) 110 mg SC Q12 [facility] Last Admin: 03/18/19 10:18 Dose: 110 mg Documented by: Glucagon () 1 mg IM .X1 PRN PRN Reason: Hypoglycemia Hydrochlorothiazide (Hctz) 25 mg PO DAILY [facility] Last Admin: 03/18/19 10:16 Dose: 25 mg Documented by: Dextrose (Dextrose 10%-Water) 250 mls @ 999 mls/hr IV .Q16M PRN; Protocol PRN Reason: HYPOGLYCEMIA Methimazole (Tapazole) 20 mg PO BID [facility] Last Admin: 03/18/19 10:16 Dose: 20 mg Documented by: Metoprolol Tartrate (Lopressor (Beta Garrett)) 50 mg PO BID [facility] Last Admin: 03/18/19 08:25 Dose: 50 mg Documented by: Ondansetron HCl (Zofran) 4 mg IV Q8H PRN PRN PRN Reason: NAUSEA/VOMITING Sodium Chloride () 10 - 40 ml IV UD PRN PRN Reason: SALINE FLUSH Last Admin: 03/17/19 20:53 Dose: 10 ml Documented by: Throat Lozenges (Cepacol Sore Throat Lozenge) 1 lozenge MUCOUS MEM Q2H PRN PRN PRN Reason: COUGH Last Admin: 03/18/19 04:45 Dose: 1 lozenge Documented by: Discharge Diet: Low fat/ Low Cholesterol, 2000 mg Sodium Diet Discharge Activity: Return to Normal Activity Home Medications: Medications to take at Discharge DiphenhydrAMINE [Benadryl] 25 mg PO QHS PRN PRN 03/17/19 Hydrochlorothiazide [Hctz] 25 mg PO DAILY 03/17/19 Apixaban [Eliquis] 5 mg PO BID #60 tab 03/18/19 Methimazole [Tapazole] 20 mg PO BID #120 tab 03/18/19 Metoprolol Tartrate [Lopressor (beta garrett)] 50 mg PO BID #60 tab 03/18/19 Following Prescrptions Were Given to Patient: Apixaban [Eliquis] 5 mg PO BID #60 tab Transmission Status: Received by [facility] Metoprolol Tartrate [Lopressor (beta garrett)] 50 mg PO BID #60 tab Transmission Status: Received by [facility] Methimazole [Tapazole] 20 mg PO BID #120 tab Transmission Status: Received by [facility] Primary Care Physician: Venkatesh Artis [Primary Care Provider] - Please follow up with your Primary Care Physician in: 1-2 weeks Please Follow Up With: Maria Antonia Patterson MD When: as directed Please Follow Up With: Donny Estrada MD When: 1-2 weeks Disposition: Home Minutes spent on discharge:: 35 Patient Condition:: Stable Medical Necessity - Tobacco Use Smoking Status: Current every day smoker Tobacco Use: Cigarettes Meaningful Use Info Meaningful Use Diagnoses (Choose all that apply): None applicable <Fortunato Espinal F - Last Filed: 03/18/19 16:39> Discharge Date and Diagnosis - Secondary Discharge Diagnosis Chronic Problems (Last Reviewed 03/17/19 @ 17:20 by Bay Oliver DO) Morbid obesity (Chronic) GERD (gastroesophageal reflux disease) (Chronic) HTN (hypertension) (Chronic) Osteoarthritis (Chronic) Nicotine abuse (Chronic) Hospital Course and Treatment Summary of Care Provided: The patient is a 48 year old F [] - Physical Exam Vitals/I&O's: Vital Signs Temp Pulse Resp BP Pulse Ox 97.8 F 84 18 120/52 L 95 03/18/19 14:46 03/18/19 14:46 03/18/19 14:46 03/18/19 14:46 03/18/19 14:46 Oxygen Delivery Method Room Air Weight: 234 lb 2.095 oz Body Mass Index (BMI) 42.8 Intake and Output for Last 24 Hours 03/16/19 03/17/19 03/18/19 23:59 23:59 23:59 Intake Total 1151. / 1151.17 Balance 115. / 115.17 Laboratory Results 03/17/19 18:29: Troponin I 1.180 H* 03/17/19 21:36: Troponin I 1.150 H* 03/18/19 05:16: WBC 8.3, RBC 4.90, Hgb 13.8, Hct 43.8, MCV 89.4, MCH 28.2, MCHC 31.5 L, RDW Std Deviation 43.8, RDW Coeff of Gaye 13.4, Plt Count 283, MPV 9.6, Immature Gran % (Auto) 0.100, Neut % (Auto) 28.4 L, Lymph % (Auto) 60.4 H, Ector % (Auto) 7.9, Eos % (Auto) 2.4, Baso % (Auto) 0.8, Absolute Neuts (auto) 2.4, Absolute Lymphs (auto) 5.00 H, Nucleated RBC % 0 03/18/19 05:16: Sodium Cancelled, Potassium Cancelled, Chloride Cancelled, Carbon Dioxide Cancelled, Anion Gap Cancelled, BUN Cancelled, Creatinine Cancelled, Estim Creat Clear Calc Cancelled, Est GFR (MDRD) Af Amer Cancelled, Est GFR (MDRD) Non-Af Cancelled, BUN/Creatinine Ratio Cancelled, Glucose Cancelled, Calcium Cancelled, Total Bilirubin Cancelled, AST Cancelled, ALT Cancelled, Alkaline Phosphatase Cancelled, Total Protein Cancelled, Albumin Cancelled, Globulin Cancelled, Albumin/Globulin Ratio Cancelled 03/18/19 05:56: Sodium 140, Potassium 3.4 L, Chloride 108 H, Carbon Dioxide 26.0, Anion Gap 6, BUN 11, Creatinine 0.51 L, Estim Creat Clear Calc 107.85, Est GFR (MDRD) Af Amer 165, Est GFR (MDRD) Non-Af 137, BUN/Creatinine Ratio 21.5 H, Glucose 90, Calcium 9.1, Total Bilirubin 0.50, AST 22, ALT 23, Alkaline Phosphatase 102, Total Protein 6.5, Albumin 2.8 L, Globulin 3.7, Albumin/Globulin Ratio 0.8 L Code Visit Addendum: Dr. Espinal I personally examined the patient and reviewed the chart. I agree with the above. 48-year-old female who presented to the hospital after following up with her residential therapist who notes that she had an arrhythmia. She was found to have A. fib with RVR as well as an elevated troponin secondary to demand ischemia from her tachycardia. Cardiology was consulted and felt she could have an outpatient stress test once her hyperthyroidism is controlled as her echo was unremarkable and there is no wall motion abnormality. To that and she was initially on methimazole 10 mg daily I believe because of cost however we found that she would be able to afford 120 pills/month at $18 a month and therefore she was discharged on 20 mg twice daily. Given her A. fib as well as her chads of 2, she was discharged on Eliquis as well. She will need to follow-up with her residential therapist for further monitoring of her hyperthyroidism. Initially she was given a dose of metoprolol which did not seem to help and therefore she was started on a Cardizem drip. This morning she was transitioned back to metoprolol p.o. 50 mg twice daily and it seems that her heart rate has remained stable as has her blood pressure. She will also need to follow-up with cardiology as an outpatient Inpatient E&M: [id number] [facility]
== END 2019-03-18 15:49 | disposition home or self-care (01) | DRG 309 ==
LOC: ED 15:42 → PCU 16:55
PROVIDERS: Emergency Provider Emergency Medicine; Family Provider Family Medicine; PCP Family Medicine; Visit Provider Family Medicine
DX: I48.91 Unspecified atrial fibrillation (principal); Z68.41 Body mass index [BMI] 40.0-44.9, adult; E05.90 Thyrotoxicosis, unspecified without thyrotoxic crisis or storm; E66.01 Morbid (severe) obesity due to excess calories; I10 Essential (primary) hypertension; K21.9 Gastro-esophageal reflux disease without esophagitis; M19.90 Unspecified osteoarthritis, unspecified site; R79.89 Other specified abnormal findings of blood chemistry; F17.210 Nicotine dependence, cigarettes, uncomplicated; Z79.899 Other long term (current) drug therapy
CPT/HCPCS: 36415; 71046; 80048; 80053; 83880; 84443; 84481; 84484; 85025; 93005; 93306; 99284; 99406; J7030; Q9957; A4216; C8929

== ENCOUNTER → 2019-03-31 10:22 | Outpatient (CLI) | payer BC, SELFPAY ==
[2019-03-17 17:03] VITALS: BMI 42.8
[2019-03-31 11:48] LABS: Free T3 7.3 pg/mL (2.18-3.98); T4 Free Direct 2.44 ng/dL (0.76-1.46); Thyroid Stim Hormone (TSH) < 0.01 uIU/mL (0.358-3.74)
== END ==
PROVIDERS: PCP Family Medicine; Referring Provider Internal Medicine Endocrinology, Diabetes & Metabolism; Visit Provider Internal Medicine Endocrinology, Diabetes & Metabolism
DX: E05.90 Thyrotoxicosis, unspecified without thyrotoxic crisis or storm (principal)
CPT/HCPCS: 36415; 84439; 84443; 84481

== ENCOUNTER → 2019-04-07 09:42 | Outpatient (CLI) | payer BC, SELFPAY ==
[2019-03-31 17:35] VITALS: BMI 42.8
[2019-04-06 11:24] VITALS: BMI 43.0
--- NOTE | 2019-04-07 09:43 | NM_ITS ---
STUDY: NUCLEAR MEDICINE RADIOPHARMACEUTICAL THERAPY. REASON FOR EXAM: Female, 48 years old. Hyperthyroidism TECHNIQUE: The patient ingested 15 mCi of iodine-131 for treatment of hyperthyroidism. COMPARISON: None. FINDINGS: The patient ingested 15 mCi of iodine-131 for treatment of hyperthyroidism. NM/Therapy I-131 IMPRESSION: Successful injection of 15 mCi of iodine-131 for treatment of hyperthyroidism. Electronically Signed: [place], at 10:23 EST , Service support ,
== END ==
PROVIDERS: PCP Family Medicine; Referring Provider Internal Medicine Endocrinology, Diabetes & Metabolism; Visit Provider Internal Medicine Endocrinology, Diabetes & Metabolism
DX: E05.90 Thyrotoxicosis, unspecified without thyrotoxic crisis or storm (principal)
CPT/HCPCS: 79005; A9517

== ENCOUNTER → 2019-05-17 11:30 | Outpatient (CLI) | payer BC, SELFPAY ==
[2019-05-04 10:42] VITALS: BMI 44.8
[2019-05-17 13:35] LABS: Free T3 4.8 pg/mL (2.18-3.98); T4 Free Direct 1.69 ng/dL (0.76-1.46); Thyroid Stim Hormone (TSH) < 0.01 uIU/mL (0.358-3.74)
== END ==
PROVIDERS: PCP Family Medicine; Referring Provider Internal Medicine Endocrinology, Diabetes & Metabolism; Visit Provider Internal Medicine Endocrinology, Diabetes & Metabolism
DX: E05.00 Thyrotoxicosis with diffuse goiter without thyrotoxic crisis or storm (principal)
CPT/HCPCS: 36415; 84439; 84443; 84481

== ENCOUNTER → 2019-06-15 07:36 | Outpatient (CLI) | payer BC, SELFPAY ==
[2019-06-09 11:09] VITALS: BMI 44.8
[2019-06-15 08:31] LABS: T4 Free Direct 1.55 ng/dL (0.76-1.46); Thyroid Stim Hormone (TSH) < 0.01 uIU/mL (0.358-3.74)
== END ==
PROVIDERS: PCP Family Medicine; Referring Provider Internal Medicine Endocrinology, Diabetes & Metabolism; Visit Provider Internal Medicine Endocrinology, Diabetes & Metabolism
DX: E05.90 Thyrotoxicosis, unspecified without thyrotoxic crisis or storm (principal)
CPT/HCPCS: 36415; 84439; 84443; 84481

== ENCOUNTER → 2019-07-13 07:37 | Outpatient (CLI) | payer BC, SELFPAY ==
[2019-06-15 10:58] VITALS: BMI 45.5
[2019-07-13 09:37] LABS: Free T3 3.8 pg/mL (2.18-3.98); Thyroid Stim Hormone (TSH) < 0.01 uIU/mL (0.358-3.74)
== END ==
PROVIDERS: PCP Family Medicine; Referring Provider Internal Medicine Endocrinology, Diabetes & Metabolism; Visit Provider Internal Medicine Endocrinology, Diabetes & Metabolism
DX: E05.90 Thyrotoxicosis, unspecified without thyrotoxic crisis or storm (principal)
CPT/HCPCS: 36415; 84439; 84443; 84481

== ENCOUNTER → 2019-09-13 11:14 | Outpatient (CLI) | payer BC, SELFPAY ==
[2019-06-15 10:58] VITALS: BMI 45.5
[2019-09-13 12:43] LABS: Free T3 2.8 pg/mL (2.18-3.98); T4 Free Direct 0.99 ng/dL (0.76-1.46); Thyroid Stim Hormone (TSH) < 0.01 uIU/mL (0.358-3.74)
== END ==
PROVIDERS: PCP Family Medicine; Referring Provider Internal Medicine Endocrinology, Diabetes & Metabolism; Visit Provider Internal Medicine Endocrinology, Diabetes & Metabolism
DX: E05.90 Thyrotoxicosis, unspecified without thyrotoxic crisis or storm (principal)
CPT/HCPCS: 36415; 84439; 84443; 84481

== ENCOUNTER → 2019-11-08 12:03 | Outpatient (CLI) | payer BC, SELFPAY ==
[2019-10-11 12:03] VITALS: BMI 52.3
[2019-11-08 13:35] LABS: Anion Gap 4 (5-15); BUN 10 mg/dL (7-18); BUN/Creat Ratio 12.4 RATIO (10-20); Chloride 106 mmol/L (98-107); Creatinine, Serum 0.81 mg/dL (0.55-1.02); EST Glomerular Filtration Rate 80 mL/min (>60); Est Glom Filt Rate - Afr Amer 97 mL/min (>60); Glucose 91 mg/dL (74-106); Sodium Level 137 mmol/L (136-145)
[2019-11-08 13:43] LABS: Free T3 2.1 pg/mL (2.18-3.98); T4 Free Direct 0.76 ng/dL (0.76-1.46); Thyroid Stim Hormone (TSH) 0.35 uIU/mL (0.358-3.74)
== END ==
PROVIDERS: Specialist; PCP Family Medicine; Referring Provider Internal Medicine Endocrinology, Diabetes & Metabolism; Visit Provider Internal Medicine Endocrinology, Diabetes & Metabolism
DX: I48.91 Unspecified atrial fibrillation (principal); R60.9 Edema, unspecified; E05.90 Thyrotoxicosis, unspecified without thyrotoxic crisis or storm
CPT/HCPCS: 36415; 80048; 84439; 84443; 84481

== ENCOUNTER → 2019-12-06 10:51 | Outpatient (CLI) | payer BC, SELFPAY ==
[2019-11-08 13:37] VITALS: BMI 45.4
[2019-12-06 12:03] LABS: Anion Gap 4 (5-15); BUN 15 mg/dL (7-18); BUN/Creat Ratio 17.5 RATIO (10-20); Chloride 103 mmol/L (98-107); Creatinine, Serum 0.86 mg/dL (0.55-1.02); EST Glomerular Filtration Rate 75 mL/min (>60); Est Glom Filt Rate - Afr Amer 91 mL/min (>60); Glucose 92 mg/dL (74-106); Sodium Level 136 mmol/L (136-145)
[2019-12-06 12:19] LABS: Free T3 2.2 pg/mL (2.18-3.98); T4 Free Direct 0.78 ng/dL (0.76-1.46); Thyroid Stim Hormone (TSH) 1.69 uIU/mL (0.358-3.74)
== END ==
PROVIDERS: Specialist; PCP Family Medicine; Referring Provider Internal Medicine Endocrinology, Diabetes & Metabolism; Visit Provider Internal Medicine Endocrinology, Diabetes & Metabolism
DX: I10 Essential (primary) hypertension (principal); I48.91 Unspecified atrial fibrillation; R60.9 Edema, unspecified; E05.90 Thyrotoxicosis, unspecified without thyrotoxic crisis or storm
CPT/HCPCS: 36415; 80048; 84439; 84443; 84481

== ENCOUNTER → 2020-01-25 13:00 | Outpatient (CLI) | payer BC, SELFPAY ==
[2020-01-05 09:13] VITALS: BMI 45.8
--- NOTE | 2020-01-25 13:03 | RAD_ITS ---
STUDY: X-RAY - LEFT KNEE REASON FOR EXAM: Female, 49 years old. PAIN IN BOTH KNEES FOR A LONG TIME GETTING WORSE. NO KNOWN INJURY. TECHNIQUE: 2 view(s) of the knee. COMPARISON: None. FINDINGS: Degenerative spur is seen along the lateral femoral condyle. Degenerative spur along the medial tibial plateau. Normal proximal tibiofibular articulation. There is severe degenerative arthrosis of the medial femorotibial compartment with severe joint space narrowing. Normal lateral femorotibial compartment. There is severe degenerative arthrosis of the patellofemoral articulation. The soft tissue structures are unremarkable. RAD/Knee 1 or 2 Views IMPRESSION: Degenerative arthrosis. Electronically Signed: [place], at 15:44 EST , Service support ,
--- NOTE | 2020-01-25 13:03 | RAD_ITS ---
HISTORY: PAIN IN BOTH KNEES FOR A LONG TIME GETTING WORSE. NO KNOWN INJURY. ADDITIONAL HISTORY: None provided. EXAMINATION/TECHNIQUE: XR Knee 1 or 2 Views Right Number of images including paperwork: 2 COMPARISON: None FINDINGS: BONES: No acute fracture. JOINTS: Severe degenerative changes of the medial compartment with joint space narrowing, subchondral sclerosis and osteophyte formation. Knee varus. Moderate degenerative changes of the lateral and patellofemoral compartments. Small joint effusion. SOFT TISSUES: No distinct foreign body. RAD/Knee 1 or 2 Views IMPRESSION: Degenerative changes without acute osseous abnormality. at 0329 Reported and signed by: Mely Sandoval MD Electronically Signed: Mely Sandoval MD at 3:29 EST Tel , Service support ,
--- NOTE | 2020-01-25 13:05 | RAD_ITS ---
STUDY: X-RAY - LUMBAR SPINE REASON FOR EXAM: Female, 49 years old. PAIN IN LOWER BACK FOR A LONG TIME GETTING WORSE. NO KNOWN INJURY. TECHNIQUE: 3 view(s) of the lumbar spine were obtained. COMPARISON: None FINDINGS: There appear to be only 4 nonrib-bearing vertebrae. Normal lumbar lordosis. There is no substantial scoliosis. There is 5 mm anterolisthesis of L3 on L4. Otherwise normal alignment of the vertebrae. There is multilevel endplate spondylosis of the lumbar vertebrae. There is multi-level degenerative disc disease with multi-level disc space narrowing. There is no demonstrated fracture. The soft tissue structures are unremarkable. RAD/Lumbar Spine 2 or 3 Views IMPRESSION: No acute abnormalities. Degenerative changes. There appear to be only 4 nonrib-bearing lumbar vertebrae. Electronically Signed: Stevenson Elziabeth MD at 23:57 EST , Service support ,
== END ==
PROVIDERS: PCP Family Medicine; Referring Provider Anesthesiology Pain Medicine; Visit Provider Anesthesiology Pain Medicine
DX: M54.9 Dorsalgia, unspecified (principal); M25.561 Pain in right knee; M25.562 Pain in left knee
CPT/HCPCS: 72100; 73560

== ENCOUNTER 2020-01-26 10:31 | Day surgery (SDC) | payer BC, SELFPAY ==
[2019-12-20 13:50] VITALS: BMI 45.8
[2020-01-05 09:13] VITALS: BMI 45.8
[2020-01-25 13:50] LABS: Internal QC Validated? YES +Cl - CLEAR BKGD; Pregnancy, Serum, hCG Quali. NEGATIVE Negative
[2020-01-25 14:01] LABS: Anion Gap 7 (5-15); BUN 10 mg/dL (7-18); Calcium,Total 9.1 mg/dL (8.5-10.1); Chloride 103 mmol/L (98-107); Creatinine, Serum 0.83 mg/dL (0.55-1.02); EST Glomerular Filtration Rate 78 mL/min (>60); Est Glom Filt Rate - Afr Amer 94 mL/min (>60); Estimated Creatinine Clearance 80.61 ml/min; Glucose 86 mg/dL (74-106); Potassium 3.5 mmol/L (3.5-5.1); Sodium Level 138 mmol/L (136-145)
[2020-01-25 14:07] LABS: Free T3 2.1 pg/mL (2.18-3.98); T4 Free Direct 0.78 ng/dL (0.76-1.46); Thyroid Stim Hormone (TSH) 4.46 uIU/mL (0.358-3.74)
--- NOTE | 2020-01-26 06:04 | HP_ITS ---
HPI HPI History of Present Illness Details: 04/06/2019: Patient was recently seen in the hospital when she presented with A. fib with RVR. She has a diagnosis of hyperthyroidism. She was started on methimazole and also metoprolol, her heart rate was controlled and patient was discharged home. Patient developed a rash and it is not clear if it is from methimazole or metoprolol. Both of these medications were stopped. Patient stopped these medicines 2 days ago. Currently she has rapid ventricular response with a heart rate of around 110 to 120.Patient scheduled for thyroid ablation using radioactive iodine tomorrow. 05/04/2019: Patient had radioiodine ablation. Overall she is feeling better. She monitors her heart rate and it ranges from 50s to 120s. Appears to be controlled for the most part. She is going to get her thyroid profile checked on May 16 and will be seeing her cafe helper on June 08 according to the patient. 06/15/2019: Patient is doing well. Denies any cardiac complaints. Her heart rate is 60 bpm today. She is getting some blood work done for her cafe helper. 08/15/2019: Patient has been having edema and cough for the last 2 months. She has not noticed any palpitations. However when she had A. fib with RVR also she did not have significant palpitations. She had blood work done recently at [facility]. 10/11/2019: Patient has been having weight gain and edema. She is also having worsening of her back pain. Her recent thyroid profile revealed suppressed TSH but normal T3 and T4. She appears to be in A. fib at this time. 11/08/2019: Patient continues to have weight gain. She had her thyroid profile done and her TSH was 0.35. Her palpitations are better with the medication changes that we did last visit.She does continue to have edema which is lesser than before 12/06/2019: Patient continues to have A. fib with elevated heart rate. Thyroid profile done today reveals normal TSH, normal free T3 and normal free T4. 12/20/2019: At last visit patient's Cardizem was increased and her heart rate is under better control today. Her symptoms are overall better than at last visit. However she continues to remain in A. fib. Intake Vital Signs 12/20/19 Height 5 ft 7 in 12/20/19 Weight: 293 lb 12/20/19 BMI 45.8 12/20/19 BP 136/80 H 12/20/19 Blood Pressure Location Lt brachial 12/20/19 Position Sitting 12/20/19 Respiration 18 12/20/19 Pulse 72 12/20/19 Pulse Source Auscultation Intake Visit Reasons: 3 WK F/U Optical Glass Etcher Required: No Accompanied by: None Is patient in pain?: No Allergies methimazole Allergy (Severe, Verified 12/20/19 13:52) Hives all over metoprolol Allergy (Severe, Verified 12/20/19 13:52) Hives naproxen Allergy (Severe, Verified 12/20/19 13:52) Hives Medications DiphenhydrAMINE [Benadryl] 25 mg PO QHS PRN PRN 03/17/19 [History Confirmed 12/20/19] apixaban 5 mg tablet 5 mg PO BID #60 tab 05/04/19 [Rx Confirmed 12/20/19] hydrochlorothiazide 25 mg tablet 25 mg PO DAILY #30 tab 05/04/19 [Rx Confirmed 12/20/19] propylthiouracil 50 mg tablet 50 mg PO BID #60 tab 09/13/19 [Rx Confirmed 12/20/19] potassium chloride 20 mEq tablet,extended release 20 meq PO DAILY #30 tab 10/11/19 [Rx Confirmed 12/20/19] acetaminophen 500 mg tablet 1,000 mg PO Q8H PRN tab 12/06/19 [History Confirmed 12/20/19] diltiazem HCl 360 mg capsule,24 hr,extended release 360 mg PO DAILY #30 cap 12/06/19 [Rx Confirmed 12/20/19] furosemide 20 mg tablet 20 mg PO BID #60 tab 12/12/19 [Rx Confirmed 12/20/19] Ejection fraction %: 60 to 64 PFSH Medical History Allergic rhinitis, unspecified (Chronic) Asthma (Chronic) Chronic sinusitis (Chronic) De Quervain's tenosynovitis (Chronic) Encounter for therapeutic drug level monitoring (Chronic) Enlarged thyroid (Chronic) Generalized osteoarthrosis, involving multiple sites (Chronic) Hyperlipidemia (Chronic) Hypertension (Chronic) Internal hemorrhoids (Chronic) Polycystic ovaries (Chronic) Acute eczema (Resolved) Abdominal pain, right upper quadrant (Inactive) Surgical History H/O arthroscopy of left knee (Chronic) History of Edward fundoplication (Chronic) Family History Other Adult idiopathic generalized osteoporosis Asthma Heart disease Kidney disease Seizures Social History (Updated 12/20/19 @ 14:[address] Maria Antonia Patterson MD) Smoking Status: Current every day smoker tobacco type: cigarettes counseling given: provider counseling alcohol intake: never substance use type: does not use caffeine: Yes Type: carbonated beverages Number of servings: 1, coffee Number of servings: 3 ROS Const Const: Negative for fatigue, weakness, headache(s), frequent falls, difficulty sleeping or excessive sweating Eyes Eyes: Negative for loss of peripheral vision, transient loss of vision, blurry vision, double vision or tunnel vision ENT ENT: Negative for headache(s), dizziness, Nosebleed/epistaxis or balance problems Cardio Chest Pain: No Palpitations: No Edema: Bilateral Muscle aches with walking: None Resp Respiratory: Positive for SOB with activity; negative for SOB at rest, SOB orthopnea\SOB lying down, Cough or paroxysmal nocturnal dyspnea GI GI: Negative nausea, vomiting, heartburn or black,tarry stools : Negative for hematuria Musc Musc: Positive for joint pain; negative for muscle aches/ myalgia, muscle weakness or balance problems Skin Skin: Negative non-healing lesions, rash or unusual bruising Neuro Neuro: Negative for dizziness, lightheadedness, near syncope, syncope, frequent falls, headache(s), weakness, blurry vision, double vision or lack of coordination [place] Hematologic/Lymphatic: Negative for easy bleeding or easy bruising Endo Endo: Negative for fatigue, excessive sweating or increased thirst/drinking Psych Psych: Negative for anxiety or depression Allergy Allergy/Immunology: Negative for hives, Negative for rash Cardiology Exam Const Appearance: cooperative; negative acute distress Nutritional Appearance: well nourished Head Head: normocephalic and atraumatic Ears: hearing grossly normal bilaterally Nose: external nose normal Face and Sinus: face symmetric Mouth: moist mucous membranes Teeth and gingiva: fair dentition Eyes General: appearance normal, both eyes and all related structures Eyelids: eyelids normal Conjunctivae: conjunctivae normal Neck Neck: trachea midline and no JVD Chest Chest inspection: symmetric chest movement; negative pursed lip breathing Auscultation: Bilateral: Clear to Auscultation Cardio Rhythm: irregular rhythm Heart sounds: S1 normal and S2 normal No Murmurs GI GI: normal to inspection Neuro General: alert, awake and oriented x3 Gait: Negative ataxic Skin Skin: no rashes or lesions noted; negative atrophy or jaundice Extremities Pulses: Normal: Right Posterior Tibial Pulse, Left Posterior Tibial Pulse Lower Extremity Edema: Trace: Bilateral Musculoskel Musculoskeletal: No joint tenderness Psych Psychological: normal affect Assessment & Plan 1. Atrial fibrillation with RVR I48.91 Plan 11/2019:Discussed proceeding with cardioversion now that patient's thyroid profile seems to be within normal limits. Patient did not want cardioversion yet. We will go ahead and increase the Cardizem to 360 mg p.o. daily. We will check an EKG in 2 weeks. If patient continues to remain in A. fib then we will schedule her for cardioversion. 12/20/2019: Patient's heart rate is better. Her symptoms are also improved. She continues to remain in atrial fibrillation. Her thyroid profile is currently under normal limits. We will proceed with cardioversion. Discussed this in detail with the patient. Patient is agreeable. Orders Orders: 12 Lead EKG performed by [facility] Today 2. Hyperthyroidism E05.90 Plan Patient appears to be euthyroid now. 3. Hypertension, unspecified type I10 Plan Controlled. Continue present management. Orders Orders: 12 Lead EKG performed by [facility] Today Coding Level of Care Code Off vis,est,level 4 Diagnoses Atrial fibrillation with RVR I48.91 Hyperthyroidism E05.90 Hypertension, unspecified type I10 ??Hypertension type: unspecified Coding Level of Care Code Off vis,est,level 4 Diagnoses Atrial fibrillation with RVR I48.91 Hyperthyroidism E05.90 Hypertension, unspecified type I10 ??Hypertension type: unspecified Supplemental Info Supplemental Information Diagnostics Electrocardiogram 12/20/19 Echocardiogram 03/17/19 Chest X-Ray 03/17/19
--- NOTE | 2020-01-26 13:42 | PRO.PCM_ITS ---
Procedure Report Date of Procedure: 01/26/20 CONSCIOUS SEDATION REPORT DATE OF SERVICE: January 26, 2020 BRIEF HISTORY OF PRESENT ILLNESS: The patient is a 49-year-old female who presented to [facility] for an elective outpatient cardioversion due to underlying atrial fibrillation. The patient is systemically anticoagulated on Eliquis. Her last surface echocardiogram revealed an ejection fraction of approximately 60%. The patient is an active every day smoker. She has never been tested for obstructive sleep apnea in the past. She denies any previous known anesthetic complications. PHYSICAL EXAMINATION: VITAL SIGNS: Reviewed and were acceptable. GENERAL: The patient is an obese female, in no apparent distress, speaking in full sentences. HEENT: Normocephalic, atraumatic. Mucous membranes are moist and pink. Good mouth opening noted. Trachea is midline. CHEST: S1, S2 irregularly irregular. No murmurs, rubs or gallops were noted. LUNGS: Clear to auscultation bilaterally without appreciable wheezes, rales or rhonchi. ABDOMEN: Soft, nontender, nondistended. Positive bowel sounds. EXTREMITIES: There is no clubbing, cyanosis or edema. ASA Class: II DESCRIPTION OF PROCEDURE: After confirmation of informed consent, the patient's anesthesia plan was reviewed in detail. Propofol was chosen. Risks and benefits were reviewed and the patient agreed to proceed. At 1211, the patient was given her first bolus of propofol. In total, the patient required 100 mg of propofol to achieve an ap propriate level of sedation, after which time, she was given a 200 joule synchronized cardioversion by Dr. Patterson at the bedside. This was successful in achieving normal sinus rhythm. The patient was monitored until 1222, at which time she reached her baseline mental status and function. The patient tolerated the procedure well. COMPLICATIONS: None ESTIMATED BLOOD LOSS: None RECOMMENDATIONS: Okay to recover in usual fashion. [id number]: Other Procedure See Report - [id number]
--- NOTE | 2020-01-26 14:35 | CARDIOVERS_ITS ---
Cardioversion Cardioversion: Procedures performed: DC cardioversion Date 01/26/2020 Indications: Chronic persistent atrial fibrillation presumed to be secondary to hyperthyroidism that has been treated and patient is currently euthyroid. Procedure description: Patient was brought to the cardiac Leadership Development Manager and the postabsorptive nonsedated state. It was confirmed that the patient had been compliant with anticoagulation. She was seen by Dr. Artis, electronics instructor. Informed consent was obtained. Anterior posterior pads were applied. The dianelys ent was administered 100 mg of intravenous propofol. 200 J of synchronized DC cardioversion energy were applied with prompt reversal to sinus rhythm with occasional PACs. Twelve-lead EKG confirmed this as well. Conclusions: Successful DC cardioversion to sinus rhythm. Continue current medications including anticoagulation.
== END 2020-01-26 13:30 | disposition home or self-care (01) ==
PROVIDERS: Internal Medicine Endocrinology, Diabetes & Metabolism; PCP Family Medicine; Referring Provider Specialist; Visit Provider Specialist
DX: I48.19 Other persistent atrial fibrillation (principal); I10 Essential (primary) hypertension; E78.5 Hyperlipidemia, unspecified; E05.90 Thyrotoxicosis, unspecified without thyrotoxic crisis or storm; J45.909 Unspecified asthma, uncomplicated; Z79.01 Long term (current) use of anticoagulants; Z79.899 Other long term (current) drug therapy; F17.210 Nicotine dependence, cigarettes, uncomplicated
CPT/HCPCS: 36415; 80048; 84439; 84443; 84481; 84703; 92960; 93005; J7040

== ENCOUNTER → 2020-03-22 11:42 | Outpatient (CLI) | payer BC, SELFPAY ==
[2020-02-08 13:10] VITALS: BMI 46.6
[2020-03-22 12:59] LABS: T4 Free Direct 1.21 ng/dL (0.76-1.46)
== END ==
PROVIDERS: PCP Family Medicine; Referring Provider Internal Medicine Endocrinology, Diabetes & Metabolism; Visit Provider Internal Medicine Endocrinology, Diabetes & Metabolism
DX: E05.90 Thyrotoxicosis, unspecified without thyrotoxic crisis or storm (principal)
CPT/HCPCS: 36415; 84439; 84443

== ENCOUNTER → 2020-06-20 10:49 | Outpatient (CLI) | payer BC, SELFPAY ==
[2020-02-08 13:10] VITALS: BMI 46.6
[2020-06-20 12:03] LABS: T4 Free Direct 0.93 ng/dL (0.76-1.46); Thyroid Stim Hormone (TSH) 3.86 uIU/mL (0.358-3.74)
== END ==
PROVIDERS: PCP Family Medicine; Referring Provider Internal Medicine Endocrinology, Diabetes & Metabolism; Visit Provider Internal Medicine Endocrinology, Diabetes & Metabolism
DX: E05.90 Thyrotoxicosis, unspecified without thyrotoxic crisis or storm (principal)
CPT/HCPCS: 36415; 84439; 84443

== ENCOUNTER → 2020-08-23 11:26 | Outpatient (CLI) | payer BC, SELFPAY ==
[2020-02-08 13:10] VITALS: BMI 46.6
[2020-08-23 12:58] LABS: T4 Free Direct 0.99 ng/dL (0.76-1.46); Thyroid Stim Hormone (TSH) 3.18 uIU/mL (0.358-3.74)
== END ==
PROVIDERS: PCP Family Medicine; Referring Provider Internal Medicine Endocrinology, Diabetes & Metabolism; Visit Provider Internal Medicine Endocrinology, Diabetes & Metabolism
DX: E05.90 Thyrotoxicosis, unspecified without thyrotoxic crisis or storm (principal)
CPT/HCPCS: 36415; 84439; 84443

== ENCOUNTER → 2021-10-01 | Outpatient (CLI) | payer BC, SELFPAY ==
[2021-10-01 12:14] LABS: Free T3 2.7 pg/mL (2.18-3.98); T4 Free Direct 0.82 ng/dL (0.76-1.46)
== END | disposition home or self-care (01) ==
LOC: LAB 11:01
PROVIDERS: PCP Family Medicine; Referring Provider Nurse Practitioner Family; Visit Provider Nurse Practitioner Family
DX: E05.00 Thyrotoxicosis with diffuse goiter without thyrotoxic crisis or storm (principal)
CPT/HCPCS: 36415; 84439; 84443; 84481

== ENCOUNTER → 2021-10-29 | Outpatient (CLI) | payer BC, SELFPAY ==
[2021-10-29 13:06] LABS: Free T3 2.5 pg/mL (2.18-3.98); T4 Free Direct 0.96 ng/dL (0.76-1.46); Thyroid Stim Hormone (TSH) 3.56 uIU/mL (0.358-3.74)
== END | disposition home or self-care (01) ==
LOC: LAB 11:26
PROVIDERS: Nurse Practitioner Family; PCP Family Medicine; Referring Provider Internal Medicine Endocrinology, Diabetes & Metabolism; Visit Provider Internal Medicine Endocrinology, Diabetes & Metabolism
DX: E05.90 Thyrotoxicosis, unspecified without thyrotoxic crisis or storm (principal)
CPT/HCPCS: 36415; 84439; 84443; 84481

== ENCOUNTER → 2021-12-31 | Outpatient (CLI) | payer BC, SELFPAY ==
[2021-12-31 15:52] LABS: T4 Free Direct 1.12 ng/dL (0.76-1.46); Thyroid Stim Hormone (TSH) 2.02 uIU/mL (0.358-3.74)
== END | disposition home or self-care (01) ==
LOC: LAB 13:44
PROVIDERS: PCP Family Medicine; Referring Provider Internal Medicine Endocrinology, Diabetes & Metabolism; Visit Provider Internal Medicine Endocrinology, Diabetes & Metabolism
DX: E89.0 Postprocedural hypothyroidism (principal)
CPT/HCPCS: 36415; 84439; 84443

== ENCOUNTER → 2022-12-16 | Outpatient (CLI) | payer MEDICAID, SELFPAY ==
[2022-12-16 13:59] LABS: T4 Free Direct 1.04 ng/dL (0.76-1.46); Thyroid Stim Hormone (TSH) 3.89 uIU/mL (0.358-3.74)
== END | disposition home or self-care (01) ==
LOC: LAB 13:03
PROVIDERS: PCP Family Medicine; Referring Provider Internal Medicine Endocrinology, Diabetes & Metabolism; Visit Provider Internal Medicine Endocrinology, Diabetes & Metabolism
DX: E89.0 Postprocedural hypothyroidism (principal)
CPT/HCPCS: 36415; 84439; 84443

== ENCOUNTER → 2023-12-24 | Outpatient (CLI) | payer MEDICAID, SELFPAY ==
[2023-12-24 12:45] LABS: Absolute Lymphocyte Count 2.86 X10^3/uL (0.83-4.51); Absolute Neutrophil Count 7.1 X10^3/uL (2.0-7.7); Basophil# 0.07 X10^3/uL; Basophil% 0.6 % (0-1); Eosinophil# 0.26 X10^3/uL; Eosinophils% 2.4 % (0-5); Hematocrit 47.1 % (37-47); Hemoglobin 15.8 g/dL (12.0-15.0); Lymphocyte # 2.86 X10^3/ul (0.83-4.51); Lymphocyte % 25.9 % (19-41); Mean Corp Hgb Conc 33.5 g/dL (32-36); Mean Corpuscular Hgb 31.8 pg (27.0-32.0); Mean Corpuscular Volume 94.8 fL (81-99); Mean Platelet Vol. 9.1 fl (6.2-12.0); Monocyte# 0.76 X10^3/uL; Monocyte% 6.9 % (0-10); NRBC Flagged by Analyzer 0 % (0-5); Neutrophil # 7.07 X10^3/uL (2.7-7.7); Neutrophil % 63.8 % (47-70); Platelet Count 414 K/mm3 (150-450); RBC Distribution Width CV 13.4 % (11.6-14.6); RBC Distribution Width SD 46.5 fl (35.1-43.9); Red Blood Count 4.97 M/mm3 (4.2-5.4); White Blood Count 11.1 K/mm3 (4.4-11.0)
[2023-12-24 13:06] LABS: Anion Gap 5 (5-15); BUN 8 mg/dL (7-18); BUN/Creat Ratio 12.6 RATIO (10-20); Calcium,Total 9.9 mg/dL (8.5-10.1); Chloride 100 mmol/L (98-107); Creatinine, Serum 0.63 mg/dL (0.55-1.02); EST Glomerular Filtration Rate 105 mL/min (>60); Est Glom Filt Rate - Afr Amer 127 mL/min (>60); Glucose 104 mg/dL (74-106); Potassium 3.4 mmol/L (3.5-5.1); Sodium Level 135 mmol/L (136-145)
[2023-12-24 13:17] LABS: T4 Free Direct 0.97 ng/dL (0.76-1.46)
== END | disposition home or self-care (01) ==
PROVIDERS: Nurse Practitioner Gerontology; PCP Family Medicine; Referring Provider Internal Medicine Endocrinology, Diabetes & Metabolism; Visit Provider Internal Medicine Endocrinology, Diabetes & Metabolism
DX: R89.0 Abnormal level of enzymes in specimens from other organs, systems and tissues (principal); R06.09 Other forms of dyspnea
CPT/HCPCS: 36415; 80048; 83880; 84439; 84443; 85025

== ENCOUNTER → 2024-02-25 | Outpatient (CLI) | payer MEDICAID, SELFPAY ==
[2024-02-25 13:57] LABS: T4 Free Direct 1.29 ng/dL (0.76-1.46)
== END | disposition home or self-care (01) ==
LOC: LAB 13:09
PROVIDERS: PCP Family Medicine; Referring Provider Internal Medicine Endocrinology, Diabetes & Metabolism; Visit Provider Internal Medicine Endocrinology, Diabetes & Metabolism
DX: E89.0 Postprocedural hypothyroidism (principal)
CPT/HCPCS: 36415; 84439; 84443

== ENCOUNTER → 2024-12-20 | Outpatient (CLI) | payer MEDICAID, SELFPAY ==
[2024-12-20 14:55] LABS: Creatinine, Urine (random) 263.00 mg/dL (28.00-217.00); Microalbumin,Random Urine 29.3 mg/L (<20 mg/L)
[2024-12-20 18:23] LABS: AST(SGOT) 21 U/L (<=31); Alanine Aminotransfer ALT/SGPT 23 U/L (<=34); Albumin, Serum 4.0 g/dL (3.5-5.0); Alkaline Phosphatase 89 U/L (35-104); Anion Gap 11 (5-15); BUN 11 mg/dL (4-19); BUN/Creat Ratio 14.4 RATIO (10-20); Calcium,Total 9.7 mg/dL (7.6-11.0); Carbon Dioxide 27.5 mmol/L (21.0-32.0); Chloride 96 mmol/L (98-108); Cholesterol 287 mg/dL (<=200); Globulin 3.2 g/dL (2.2-4.2); Glucose 94 mg/dL (70-99); Low Density Lipoprotein Calc. 204 mg/dL; Potassium 3.5 mmol/L (3.3-5.1); Triglycerides 215 mg/dL; Very Low Density Lipoprotein 43 mg/dL (5-40); cholesterol:hdl ratio screen 7.09
== END | disposition home or self-care (01) ==
LOC: LAB 13:13
PROVIDERS: PCP Family Medicine; Referring Provider Nurse Practitioner Family; Visit Provider Nurse Practitioner Family
DX: E11.65 Type 2 diabetes mellitus with hyperglycemia (principal)
CPT/HCPCS: 36415; 80053; 80061; 82043; 82570; 83036; 84439; 84443